=== PATIENT | female | born 2000 | race Caucasian/White ===

== ENCOUNTER 2025-07-18 13:42 | Outpatient (CLI) | payer OTHER, SELFPAY ==
--- NOTE | 2025-07-18 14:00 | CRLHL7_ITS ---
For Patients: As a result of the Century Cures Act, medical imaging exams and procedure reports are released immediately into your electronic medical record. You may view this report before your referring provider. If you have questions, please contact your health care provider. INDICATION: Dating and viability. LMP 05/21/2025. COMPARISON: None. TECHNIQUE: Ultrasound OB pelvis transvaginal for better visualization of the endometrium and ovaries. Real time grayscale imaging of the pelvis was performed. FINDINGS: Sonographic imaging demonstrates a single living intrauterine gestation. The embryo has a regular cardiac rate measuring 154 beats per minute. The embryo`s crown-rump length measures 1.8 cm which corresponds to a gestational age of 8 weeks 2 days with sonographic due date 02/25/2026. There is a normal-appearing yolk sac. The placenta has not yet developed. No evidence of a perigestational hemorrhage. The right ovary measures 3.2 x 2.3 x 1.9 cm and the left ovary measures 1.8 x 2.3 x 1.3 cm. Corpus luteal cyst in the right ovary. No free fluid in the pelvic cul-de-sac. IMPRESSION: 1. Single living intrauterine gestation corresponding to an ultrasound gestational age of 8 weeks 2 days with sonographic due date 02/25/2026. 2. The clinical gestational age by LMP is 8 weeks 2 days. Dictated by Demetria Hanson MD @ 07/19/2025 4:57:06 AM (Electronically Signed)
== END 2025-07-18 13:43 | disposition home or self-care (01) ==
LOC: US 13:43
PROVIDERS: Visit Provider Physician Assistant
DX: Z34.91 Encounter for supervision of normal pregnancy, unspecified, first trimester (principal); Z3A.08 8 weeks gestation of pregnancy
CPT/HCPCS: 76817; 87491; 87591

== ENCOUNTER 2025-07-18 15:28 | Outpatient (CLI) | payer OTHER, SELFPAY ==
[2025-07-18 23:56] LABS: Chlamydia DNA Amplified* NOT DETECTED (No Detected); GC DNA Amplified* NOT DETECTED (No Detected)
== END 2025-07-18 15:29 | disposition home or self-care (01) ==
PROVIDERS: Visit Provider Physician Assistant
DX: Z34.91 Encounter for supervision of normal pregnancy, unspecified, first trimester (principal); Z3A.08 8 weeks gestation of pregnancy
CPT/HCPCS: 76817; 87491; 87591

== ENCOUNTER 2025-08-01 16:20 | Outpatient (CLI) | payer OTHER, SELFPAY | END 2025-08-01 16:21 | disposition home or self-care (01) | PROVIDERS: Visit Provider Physician Assistant | DX: Z34.91 Encounter for supervision of normal pregnancy, unspecified, first trimester (principal) | CPT/HCPCS: 83020; 83021; 85660; 86592; 86703; 86704; 86706; 86762; 86787; 86803; 86850; 86900; 86901; 87086; 87340 ==